=== PATIENT | female | born 1960 | race Caucasian/White ===

== ENCOUNTER 2017-10-25 21:50 | Emergency (ER) | payer BC ==
[~2017-10-25] VITALS: Ht 167.6 cm; Wt 59.0 kg
[2017-10-25 21:59] VITALS: BP_SYST 132
--- NOTE | 2017-10-25 22:05 | NUR ---
Placed in room 06 . Placed on stave hewer, blood pressure machine and pulse oximeter. To gown for exam. Side rails up. Report given to SHIRA Bermudez.
--- NOTE | 2017-10-25 22:10 | NUR ---
Patient to ER via EMS with c/o cough, that she reports started having an asthma attack and some anxiety. Patient also c/o throat discomfort from coughing. Patient is awake, alert and oriented in no acute distress, vital signs stable, respirations even and unlabored, lungs CTA, skin warm and dry to touch. Male visitor at bedside, awaiting evaluation by ER MD, will continue to observe and assess.
--- NOTE | 2017-10-25 22:15 | NUR ---
Dr Interiano at bedside to evaluate patient.
--- NOTE | 2017-10-25 23:00 | NUR ---
Patient given written and verbal discharge instructions and verbalizes understanding. ER MD discussed with patient the results and treatment provided. Patient in stable condition. ID arm band removed. No RX given. Patient educated on pain management and to follow up with PMD. Pain Scale 2. Opportunity for questions provided and answered. Patient left ER ambulating with slow, steady gait in no acute distress with male visitor at side.
[2017-10-25 23:02] VITALS: BP_SYST 123
== END 2017-10-25 23:00 | disposition home or self-care (01) ==
LOC: SED 21:50
DX: I45.81 Long QT syndrome (principal); R06.00 Dyspnea, unspecified; Z88.0 Allergy status to penicillin
CPT/HCPCS: 93005; 99283

== ENCOUNTER 2019-09-06 10:09 | Emergency (ER) | payer BC ==
[~2019-09-06] VITALS: Ht 167.6 cm; Wt 63.0 kg
--- NOTE | 2019-09-06 10:11 | NUR ---
Pt ambulated to bed 3
--- NOTE | 2019-09-06 10:15 | NUR ---
Patient arrived via POV, AAOx4, and ambulatory with steady gait. Patient c/c of shortness of breath and palpitations. Patient states she woke up feeling more anxious, feeling her heart palpitations. Patient states she was recently on Z-pack, completed 8 days ago. Since, she has been feeling more fluid in her ears, moving in and out. Patient states concerns, because she is flying soon to [place], and wanted to get checked out. Will continue to follow up and monitor.
[2019-09-06 10:21] VITALS: BP_SYST 156
[2019-09-06] MEDS ORDERED: NACL 0.9% 1,000 ML IV ONE (10:30)
[2019-09-06] MEDS ORDERED: methylPREDNISolone SOD SUCC/PF 62.5 MG/ML VIAL IVP ONE (10:30)
[2019-09-06] MEDS ORDERED: IPRATROPIUM BROM 0.5 MG/2.5 ML VIAL.NEB (ATROVENT) INH ONE (10:30)
[2019-09-06] MEDS ORDERED: ALBUTEROL SULFATE 0.083% 2.5 MG/3 ML VIAL.NEB INH ONE (10:30)
--- NOTE | 2019-09-06 10:42 | NUR ---
ER at bedside examining patient.
--- NOTE | 2019-09-06 10:55 | NUR ---
Patient refusing breathing treatment and IV medications/fluids. She states "why do I have to have them?" Patient informed she arrived with shortness of breath and this is the treatment plan. Patient continued to refuse. MD aware. Awaiting lab results. Will continue to follow up and monitor.
[2019-09-06 11:08] LABS: BASOPHILS % (AUTO) 0.6 % (0.0-2.0); EOSINOPHILS # (AUTO) 0.1 K/uL (0.0-0.4); EOSINOPHILS % (AUTO) 2.5 % (0.0-4.0); HEMATOCRIT 44.2 % (36-48); HEMOGLOBIN 15.3 g/dL (12.0-16.0); LYMPHOCYTES # (AUTO) 1.5 K/uL (1.0-5.5); LYMPHOCYTES % (AUTO) 32.4 % (20.5-51.5); MEAN CORPUSCULAR HEMOGLOBIN 34 pg (27-31); MEAN CORPUSCULAR HGB CONC 35 % (32-36); MEAN CORPUSCULAR VOLUME 99 fL (79.0-98.0); MONOCYTES # (AUTO) 0.5 K/uL (0.0-1.0); NEUTROPHILS # (AUTO) 2.5 K/uL (1.8-7.7); NEUTROPHILS % (AUTO) 53.5 % (40.0-70.0); PLATELET COUNT (AUTO) 263 K/uL (130-430); RED BLOOD CELL COUNT(AUTO) 4.46 MIL/uL (4.2-6.2); RED CELL DISTRIBUTION WIDTH 12.6 % (9.0-15.0); WHITE BLOOD COUNT (AUTO) 4.6 K/uL (4.8-10.8)
[2019-09-06 11:22] LABS: CALCIUM 9.8 mg/dL (8.4-11.0); CREATININE 0.72 mg/dL (0.55-1.30); POTASSIUM 3.9 mmol/L (3.5-5.1)
[2019-09-06 11:24] LABS: PROTHROMBIN TIME 9.7 SECS (9.5-12.5)
[2019-09-06 11:29] LABS: ALBUMIN 4.2 g/dL (3.4-4.8); TOTAL BILIRUBIN 0.5 mg/dL (0.0-1.0)
[2019-09-06 14:14] LABS: PROTHROMBIN TIME 9.9 SECS (9.5-12.5)
[2019-09-06 14:19] VITALS: BP_SYST 126
--- NOTE | 2019-09-06 14:19 | NUR ---
Patient given written and verbal discharge instructions and verbalizes understanding. ER MD discussed with patient the results and treatment provided. Patient in stable condition. ID arm band removed. Rx of Proventil, Prednisone, Sudafed given. Patient educated on pain management and to follow up with PMD. Pain Scale 0/10. Opportunity for questions provided and answered. Medication side effect fact sheet provided.
== END 2019-09-06 14:19 | disposition home or self-care (01) ==
LOC: SED 10:09
DX: J45.909 Unspecified asthma, uncomplicated (principal); R00.2 Palpitations; J98.4 Other disorders of lung; F41.9 Anxiety disorder, unspecified; E07.9 Disorder of thyroid, unspecified; E03.9 Hypothyroidism, unspecified; Z88.0 Allergy status to penicillin
CPT/HCPCS: 36415; 71045; 80053; 82150-TC; 82550-TC; 83605; 83690-TC; 83880; 84484; 85025; 85379; 85610-TC; 85730-TC; 87040-TC; 93005; 99284; J7613